=== PATIENT | female | born 1990 | race Asian ===

== ENCOUNTER 2019-03-21 03:50 | Inpatient (IN) | payer OTHER ==
[2019-03-21] MEDS ORDERED: Lactated Ringers 1000 ML Bag* 1,000 ML IV ONE (04:42)
[2019-03-21] MEDS ORDERED: Buffered Lidocaine 1% SYRIN* 1 ML/SYRINGE INTRADERM ONE (04:42)
[2019-03-21] MEDS ORDERED: ceFAZolin VIAL(*) 2 GM in NS 0.9% 100 ML* 100 ML IVPB ONE (04:53)
--- NOTE | 2019-03-21 04:53 | HP ---
General Information - Reason for Visit srom at 0100 - General Information Maternal Age: 28 Grav: 1 Para: 0 SAB: 0 IEA: 0 Estimated Due Date: 03/28/19 Determined By: LMP Maternal Blood Type and Rh: O Positive - Results this Serology/RPR Result: Non-Reactive Rubella Result: Immune HBsAg Result: Negative HIV Result: Negative GBS Culture Result: Positive Past Medical History Delivery History: See Records Pertinent Past Medical History: See Records - hypothyroid Pertinent Past Surgical History: None Pertinent Family History: Non-Contributory - Antepartal Records Antepartal Records: Reviewed, Complicated by: - gdm in good control. Review of Systems Constitutional: Comfortable CV Complaint: No Respiratory: Shortness of Breath: No Genitourinary: Leaking Fluid, No Bleeding Musculoskeletal: No Complaint Neurological: No Headache Movement: Normal Exam Allergies/Adverse Reactions: Allergies Penicillins Allergy (Verified 03/21/19 04:03) Unknown Reaction Details Lab Values - Entire Visit: Laboratory Tests 03/21/19 04:04 Vag Amniotic Fld Detect Positive - Measurements Height: 5 ft 1 in Weight: 150 lb Weight in lbs: 150.412555 Body Mass Index (BMI): 28.3 Pre- Weight: 130 lb Weight Gained This : 20 lbs and 0 ozs - Exam Breast: Breast Exam Deferred Extremities: No Edema Heart: Normal Rhythm/Heart Sounds HEENT: No Significant Findings Lungs: Clear Bilaterally Rectal: Rectal Exam Deferred Reflexes: DTR 2+ Targeted Exam Findings See L&D Outpatient Visit Provider Note for Findings: N/A Estimated Weight: 6.5 lbs Presenting Part: Vertex Membrane Status: SROM Amniotic Fluid Evaluation: Positive ROM Plus EFM Findings - External Monitor Findings External Monitor Findings: Accelerations Present, Variability Moderate Contractions: None Assessment/Plan - Obstetrical Risk Factors Obstetrical Risk Factors: GBS Positive, Gestational Diabetes - Plan Plan: Antibiotic Prophylaxis - ancef 1gm q 8, Admit - Anticipate Vaginal Delivery - will induce this am if no labor/ discussed cnm today with back up by locum/ pt accepting
[2019-03-21] MEDS ORDERED: Lactated Ringers 1000 ML Bag* 1,000 ML IV SCH ×3 (05:00→22:00)
[2019-03-21 05:02] LABS: ABS Eosinophils 0.1 10^3/ul (0-0.6); ABS Lymphocytes 2.1 10^3/ul (1.0-4.8); ABS Monocytes 0.7 10^3/ul (0-0.8); ABS Neutrophils 11.7 10^3/ul (1.5-7.7); Eosinophil % 0.8 %; Hematocrit 43 % (35-47); Hemoglobin 14.6 g/dL (12.0-16.0); Mean Corpuscular HGB Conc 34 g/dL (31-36); Mean Corpuscular Hemoglobin 31 pg (27-31); Mean Corpuscular Volume 92 fL (80-97); Mean Platelet Volume 9.8 fL (7.4-10.4); Platelet Count 149 10^3/uL (150-450); Red Blood Count 4.66 10^6 /uL (3.70-4.87); Red Cell Distribution Width 14 % (10-15); White Blood Count 14.7 10^3/uL (3.5-10.8)
[2019-03-21 05:21] LABS: Urine Benzodiazepine Screen None Detected (None Detect); Urine Opiates Screen None Detected (None Detect)
--- NOTE | 2019-03-21 08:41 | PN ---
Progress Note - Progress Note Date of Service: 03/21/19 Note: S: Report from Kaelyn Spivey. pt, but locum on today and MD desires to transfer care to this [facility]. At time of report, FHT with minimal variability with 2 decels. Pt is resting in bed. Not in pain. IV started with fluids infusing. and mother at bedside. O: BP 94/63, temp 99, HR 77, VE: 1/80/0 FHT: variability improving, FHR 140 VE deferred, SROM clear fluid Occasional contraction A: , IUP@39 weeks GBS positive, abx started, PCN allergy course complicated by: hypothyroidism and GDM Category II tracing Irregular contractions Ruptured P: Use tint layer services PRN Closely monitor FHT, start labor induction with Pitocin with reactive tracing Pain meds PRN Anticipate progression to active labor
--- NOTE | 2019-03-21 09:32 | PN ---
Progress Note - Progress Note Date of Service: 03/21/19 Note: Patient is 28 year old with MATEO of 03/28/2019 at 39 weeks who presented with ruptured membranes with clear amniotic fluid at 0100 today and was admitted to labor and delivery this morning. She has GDMA1 with compliant diet control. She had successful external version from breech presentation on . Patient feels mild contractions. She denies vaginal bleeding. Intake & Output 03/20/19 03/21/19 03/21/19 18:59 06:59 18:59 Weight 68.039 kg T 99.3, BP 107/74, P77 her last cervical exam was /0 FHR baseline 145 with moderate variability with occasional accelerations.category 1 prior to fluid bolus, heart rate had variable decelerations and was category 2. Laboratory Results - last 24 hr 03/21/19 03/21/19 03/21/19 04:04 04:48 04:50 WBC RBC Hgb Hct MCV MCH MCHC RDW Plt Count MPV Neut % (Auto) Lymph % (Auto) Swain % (Auto) Eos % (Auto) Baso % (Auto) Absolute Neuts (auto) Absolute Lymphs (auto) Absolute Monos (auto) Absolute Eos (auto) Absolute Basos (auto) Absolute Nucleated RBC Nucleated RBC % POC Glucose (mg/dL) 81 Vag Amniotic Fld Detect Positive Urine Opiates Screen Ur Barbiturates Screen Ur Phencyclidine Scrn Ur Amphetamines Screen U Benzodiazepines Scrn Urine Cocaine Screen U Cannabinoids Screen Blood Type O Positive Antibody Screen Negative 03/21/19 03/21/19 04:50 04:50 WBC 14.7 H RBC 4.66 Hgb 14.6 Hct 43 MCV 92 MCH 31 MCHC 34 RDW 14 Plt Count 149 L MPV 9.8 Neut % (Auto) 79.9 Lymph % (Auto) 14.0 Swain % (Auto) 5.1 Eos % (Auto) 0.8 Baso % (Auto) 0.2 Absolute Neuts (auto) 11.7 H Absolute Lymphs (auto) 2.1 Absolute Monos (auto) 0.7 Absolute Eos (auto) 0.1 Absolute Basos (auto) 0.0 Absolute Nucleated RBC 0.0 Nucleated RBC % 0.0 POC Glucose (mg/dL) Vag Amniotic Fld Detect Urine Opiates Screen None detected Ur Barbiturates Screen None detected Ur Phencyclidine Scrn None detected Ur Amphetamines Screen None detected U Benzodiazepines Scrn None detected Urine Cocaine Screen None detected U Cannabinoids Screen None detected Blood Type Antibody Screen Assessment: Patient with SROM at term in latent phase of labor Plan: Observe progress in labor and tolerance of labor, possible pitocin augmentation. Keira Mcdonald MD
--- NOTE | 2019-03-21 12:23 | PN ---
Progress Note - Progress Note Date of Service: 03/21/19 Note: S: Pt resting in bed. Reports some lower back pain since yesterday d/t strain. Feeling mild pain with contractions. O: BP 94/63, temp 99.1, HR 77 FHT: periods of minimal variability and moderate variability. FHR 140. No decels. VE: 50/-1 Occasional contraction A: , IUP@39 weeks GBS positive, abx started, PCN allergy course complicated by: hypothyroidism and GDM Category II Irregular contractions Ruptured P: Used shirt finisher to discuss FHT, PARQ discussion about Pitocin, and plan for operative if baby intolerant to labor/Pitocin. Questions answered. Pt and family in agreement with plan. Closely monitor FHT, start labor induction with Pitocin with reactive tracing Tylenol now for back pain Anticipate progression to active labor
[2019-03-21] MEDS ORDERED: Oxytocin in LR* 20 UNITS/1,000 ML BAG IVPB ONE (12:57)
[2019-03-21] MEDS: ceFAZolin VIAL(*) 1 GM in NS 0.9% 50 ML* 50 ML IVPB SCH ×2 (13:50→20:40)
[2019-03-21] MEDS ORDERED: Oxytocin in LR* 20 UNITS/1,000 ML BAG IVPB SCH (14:00)
--- NOTE | 2019-03-21 14:01 | PN ---
Progress Note - Progress Note Date of Service: 03/21/19 Note: S: Pt out of bed, ambulating, planning to use yoga ball. Feeling more intense contractions. O: BP 113/74, HR 67, temp 99.1 FHT: periods of minimal variability; now moderate variability, FHR 150, +accels , no decels VE: deferred Occasional contraction A: , IUP@39 weeks GBS positive, abx started, PCN allergy course complicated by: hypothyroidism and GDM Category I tracing Irregular contractions Ruptured, clear fluid P: Start low-dose Pitocin MD Harry updated and in house Anticipate progression to active labor
[2019-03-21] MEDS ORDERED: Acetaminophen TAB* 325 MG PO PRN ×2 (14:05→21:52)
[2019-03-21] MEDS ORDERED: Ondansetron INJ* 2 MG/ML VIAL IV PRN ×3 (14:59→21:15)
--- NOTE | 2019-03-21 15:16 | PN ---
Progress Note - Progress Note Date of Service: 03/21/19 - Progress Note Note: S: Patient is on Pitocin augmentation of labor at 2milliunits/min. She is feeling contractions more intensely. She had some nausea and vomiting and received a dose of Zofran. O: BP106/67, T 99.3, P75 FHR baseline 145-150 with moderate variability and accelerations, occasional variable decelerations contractions q3-4 minutes A: Patient is 28 year old at 39 weeks with SROM at 0100 on pitocin augmentation of labor. GBS + on Ancef due to PCN allergy history: GDMA1, thyroid disorder monitoring reassuring P: Follow progress in labor, Continue Pitocin augmentation of labor as tolerated. Keira Mcdnoald MD
--- NOTE | 2019-03-21 17:02 | PN ---
Progress Note - Progress Note Date of Service: 03/21/19 - Progress Note Note: S: Patient had episodes of bloody fluid on pad. Pitocin was discontinued. O: T100.1, P 78, BP 96/59, Oxygen saturation 97% contractions every 4 to 5 minutes FHR 145 with moderate variability, +accelerations, occasional mild variable deceleration Last vaginal exam was 2/80% Assessment: Category 2 tracing improving following discontinuation of pitocin., labor contractions are continuing, blood amniotic fluid is slowed. Plan: Observe for progress in labor. Type and Cross match.
--- NOTE | 2019-03-21 19:57 | PN ---
Progress Note - Progress Note Date of Service: 03/21/19 Note: S: Pt resting in bed. Reports feeling occasional contraction. O: BP 11/74, HR 67, temp 99. FHT: periods of minimal variability; now moderate variability, FHR 150, +accels , no decels VE: deferred Occasional contraction A: , IUP@39 weeks GBS positive, abx started, PCN allergy course complicated by: hypothyroidism and GDM Category I tracing Irregular contractions Ruptured, clear fluid P: Start low-dose Pitocin MD Harry updated and in house Anticipate progression to active labor S: Pt out of bed, ambulating, planning to use yoga ball. Feeling more intense contractions. O: BP 113/74, HR 67, temp 99. FHT: periods of minimal variability; now moderate variability, FHR 150, +accels , no decels VE: deferred Occasional contraction A: , IUP@39 weeks GBS positive, abx started, PCN allergy course complicated by: hypothyroidism and GDM Category I tracing Irregular contractions Ruptured, clear fluid P: Start low-dose Pitocin MD Harry updated and in house Anticipate progression to active labor S: Pt resting in bed. O: BP 115/72, HR 91, temp 99.3 FHT: FHR 148, minimal variability, variable decel, no accels Contractions q4-10 mins VE: 2cm/80/-1, bloody fluid, moderate amount (150 mL) of deep red blood with VE A: , IUP@39 weeks GBS positive, abx started, PCN allergy course complicated by: hypothyroidism and GDM Category II tracing intolerance to labor P: MD Harry updated. Plan for operative . Harry to bedside to consent patient. Marie to first officer and flight instructor. NICU and anesthesia aware.
[2019-03-21] MEDS ORDERED: Sodium Citrate/Citric Acid* 15 ML UDC ONE (20:04)
[2019-03-21] MEDS ORDERED: OXYTOCIN* 10 UNITS/ML 1 ML VIAL ONE (20:07)
[2019-03-21] MEDS ORDERED: Morphine PF AMP (0.5MG/ML)* 5 MG/10 ML AMP ONE (20:07)
[2019-03-21] MEDS ORDERED: Phenylephrine 40 MCG/ML SYRINGE ONE (20:07)
[2019-03-21] MEDS ORDERED: fentaNYL* 50 MCG/ML 2 ML VIAL (100 MCG VIAL) IV PRN (20:18)
[2019-03-21] MEDS ORDERED: Naloxone* 0.4 MG/ML 1 ML VIAL IV PRN ×2 (20:18→21:15)
--- NOTE | 2019-03-21 20:31 | PN ---
Progress Note - Progress Note Date of Service: 03/21/19 - Progress note Note: Patient is 28 year old at 39 weeks with ruptured membranes since 0100. Patient has been jojo every 4 to 5 minutes off pitocin and has not made change in cervix exam since about 330pm. Patient was recommended to have primary section for intolerance to labor with vaginal bleeding episodes and category 2 tracing remote from delivery. Risks/benefits and alternatives were reviewed with patient and she consented to the surgery. O T 99.3, HR91, BP 11/64 FHR 150 moderate variability, +acceleration, +deceleration VE unchange 2cm/80% Assessment: intolerance to augmentation of labor with episodes of vaginal bleeding and category 2 heart rate tracing. Plan: Delivery by primary low transverse section. Anesthesia, NICU, operating room, nursing teams notified. Keira Mcdonald MD
[2019-03-21] MEDS ORDERED: oxyCODONE/Acetamin 5/325 MG* TAB PO PRN ×2 (21:15)
[2019-03-21] MEDS ORDERED: Nalbuphine* 10 MG/ML 1 ML VIAL IV PRN (21:15)
[2019-03-21] MEDS ORDERED: diPHENhydraMINE IV* 50 MG/ML 1 ml VIAL (BENADRYL) IV PRN (21:15)
[2019-03-21] MEDS ORDERED: Glycerin ADULT SUPP PR PRN (21:52)
[2019-03-21] MEDS ORDERED: Witch Hazel PAD* JAR TOPICAL PRN (21:52)
[2019-03-21] MEDS ORDERED: Dibucaine 1% 28.35 GM TUBE PR PRN (21:52)
[2019-03-21] MEDS: Ketorolac INJ* 30 MG/ML 1 ML VIAL IV PRN (23:00)
[2019-03-22] MEDS: Ketorolac INJ* 30 MG/ML 1 ML VIAL IV PRN ×3 (07:58→21:02)
[2019-03-22] MEDS: Simethicone TAB* 80 MG TAB.CHEW PO SCH ×4 (07:59→21:02)
[2019-03-22] MEDS: Docusate CAP* 100 MG PO SCH ×3 (07:59→21:02)
[2019-03-22] MEDS ORDERED: Ferrous Gluconate TAB* 324 MG TAB PO SCH (09:00)
[2019-03-22 09:28] LABS: ABS Eosinophils 0.1 10^3/ul (0-0.6); ABS Lymphocytes 1.5 10^3/ul (1.0-4.8); Eosinophil % 0.7 %; Hematocrit 37 % (35-47); Hemoglobin 12.6 g/dL (12.0-16.0); Mean Corpuscular HGB Conc 34 g/dL (31-36); Mean Corpuscular Hemoglobin 32 pg (27-31); Mean Corpuscular Volume 93 fL (80-97); Mean Platelet Volume 9.8 fL (7.4-10.4); Platelet Count 126 10^3/uL (150-450); Red Blood Count 3.95 10^6 /uL (3.70-4.87); Red Cell Distribution Width 14 % (10-15); White Blood Count 16.7 10^3/uL (3.5-10.8)
--- NOTE | 2019-03-22 09:36 | PN ---
Progress Note - Progress Note Date of Service: 03/22/19 - POD#1 Note: Patient is 28 year old post op day 1 s/p Primary LTCS with two layer uterine closure. Patient is without complaints. Her pain is controlled with toradol. She is tolerating regular diet without nausea or vomiting. She has passed flatus. Her vaginal bleeding has slowed. She denies fever or chills. She denies leg pains. Brennan is draining clear urine. O: Vital Signs: Temp Pulse Resp BP Pulse Ox 97.9 F 80 15 94/54 03/22/19 05:03 03/22/19 05:03 03/22/19 05:03 03/22/19 05:03 chest: clear to auscultation cardiac: regular rate and rhythm abdomen: soft, BS present, nontender, fundus firm, dressing dry and intact lochia: moderate extremities, SCD in place, legs nontender, no edema Vital Signs Temp 97.9 F 03/22/19 05:03 Pulse 80 03/22/19 05:03 Resp 15 03/22/19 05:03 BP 94/54 03/22/19 05:03 Pulse Ox Intake & Output 03/21/19 03/22/19 03/22/19 18:59 06:59 18:59 Output Total 1050 Balance -1050 Output: Brennan 1050 Laboratory Results - last 24 hr 03/21/19 03/22/19 04:50 09:19 WBC 16.7 H RBC 3.95 Hgb 12.6 Hct 37 MCV 93 MCH 32 H MCHC 34 RDW 14 Plt Count 126 L MPV 9.8 Neut % (Auto) 84.1 Lymph % (Auto) 9.0 Bollinger % (Auto) 6.0 Eos % (Auto) 0.7 Baso % (Auto) 0.2 Absolute Neuts (auto) 14.0 H Absolute Lymphs (auto) 1.5 Absolute Monos (auto) 1.0 H Absolute Eos (auto) 0.1 Absolute Basos (auto) 0.0 Absolute Nucleated RBC 0.0 Nucleated RBC % 0.0 Blood Type O Positive Antibody Screen Negative Crossmatch See Detail Assessment: POD#1 s/p Primary LTCS doing well. Pain well controlled. Bowel function returning. Maternal blood type O positive, rubella immune Plan: continue routine postop, discontinue brennan catheter today. Regular diet as tolerated. Keira Mcdonald MD
[2019-03-22] MEDS ORDERED: Ammonia Inhalant* 1 EA AMP ONE (09:50)
[2019-03-22] MEDS ORDERED: Zolpidem TAB* 5 MG PO PRN (13:16)
[2019-03-22] MEDS ORDERED: oxyCODONE/Acetamin 5/325 MG* TAB PO PRN ×2 (13:16)
[2019-03-22] MEDS ORDERED: Ondansetron INJ* 2 MG/ML VIAL IV SCH (13:16)
[2019-03-23] MEDS: Ibuprofen TAB* 600 MG PO PRN ×4 (03:33→22:06)
[2019-03-23] MEDS: Simethicone TAB* 80 MG TAB.CHEW PO SCH ×4 (09:12→21:12)
[2019-03-23] MEDS: Docusate CAP* 100 MG PO SCH ×3 (09:12→21:12)
--- NOTE | 2019-03-23 09:12 | PN ---
Progress Note - Progress Note Date of Service: 03/23/19 - POD#2 s/p PLTCS Note: Patient is 28 year old POD#2 s/p Primary LTCS. She is feeling better. She is passing gas and tolerating regular diet. Her pain is about a 3 on 10 pain scale. She is voiding urine without difficulty. She is . She states the baby lost some weight. O: Vital Signs Temp 98.5 F 03/23/19 07:50 Pulse 75 03/23/19 07:50 Resp 16 03/23/19 07:50 BP 91/65 03/23/19 07:50 Pulse Ox Intake & Output 03/22/19 03/23/19 03/23/19 18:59 06:59 18:59 Output Total 3175 Balance -3175 Output: Urine 1400 Farfan 1775 abdomen: soft, mild distension, BS+, dressing dry and intact extremities nontender lochia scant Assessment: POD#2 s/p primary LTCS Plan: continue supportive post-op care. Keira Mcdonald MD
[2019-03-23 10:53] LABS: Varicella IgG Antibody Index <0.2; Varicella-Zoster IgG Antibody Negative
[2019-03-24] MEDS: Ibuprofen TAB* 600 MG PO PRN ×2 (04:09→10:15)
[2019-03-24] MEDS: Docusate CAP* 100 MG PO SCH (08:59)
[2019-03-24] MEDS: Simethicone TAB* 80 MG TAB.CHEW PO SCH (08:59)
[2019-03-24 09:11] VITALS: BP 94/64
--- NOTE | 2019-03-24 10:02 | PTEDU ---
Patient Name: MARICRUZ LYNN MARICRUZ LYNN selected video: Never Ever Shake a Baby to view on 03/24/2019 at 10:01:49 AM from [id number]
--- NOTE | 2019-03-24 10:04 | PTEDU ---
Patient Name: MARICRUZ LYNN MARICRUZ LYNN selected video: Never Ever Shake a Baby to view on 03[facility]24/2019 [facility] 10:03:10 [id number]
--- NOTE | 2019-03-24 10:56 | OP ---
OPERATIVE REPORT: DATE OF OPERATION: 03/21/19 DATE OF : 88 SURGEON: Farooq Salazar MD. DATAWAREHOUSE DEVELOPER: Keira Mcdonald MD. ANESTHESIA: Spinal. PRE-OP DIAGNOSES: at 39 weeks, premature rupture of membranes, vaginal bleeding, and category II tracing remote from delivery. POST-OP DIAGNOSES: at 39 weeks, premature rupture of membranes, vaginal bleeding, and category II tracing remote from delivery. OPERATIVE PROCEDURE: Primary low transverse section. Delivery of head with vacuum assistance. ESTIMATED BLOOD LOSS: 600 cc. FLUIDS: She received 1600 cc of crystalloid fluid. URINE OUTPUT: 400 cc of clear urine. FINDINGS: Delivery of a viable female over bloody fluid with a weight of 6 pounds 10 ounces with Apgars of 8 and 8. The placenta was sent to pathology. It appeared to be consistent with abruption. The uterus, adnexa, bowel, and bladder were all within normal limits and there were no complications. DESCRIPTION OF PROCEDURE: The patient was taken to the operating room, where she was identified. She was placed on the operating table, where a spinal anesthetic was obtained without difficulty. She was then placed in the supine position with a leftward tilt, prepped and draped in a normal sterile fashion. A Pfannenstiel skin incision was then made with a knife and carried through to the underlying layer fascia. The fascia was nicked in the midline and extended laterally with curved Bolanos scissors. The fascia was then grasped superiorly and inferiorly with Pili clamps and dissected off sharply from the rectus muscle. The rectus muscle was in the midline bluntly. The peritoneum was identified, grasped with pickups, and entered sharply with Metzenbaum scissors and extended superiorly and inferiorly sharply. A bladder blade was inserted into the patient's abdomen and bladder flap was created using Metzenbaum scissors, over which the bladder blade was then re-inserted. A low transverse uterine incision was made with a knife, extended laterally with bandage scissors. The infant's head was then grasped. It was difficult to deliver the head, so vacuum was applied and the head was then delivered without difficulty with vacuum extraction. The rest of the infant's body was then delivered. Nuchal cord x1 was reduced. The cord was clamped and cut and the was handed off to awaiting social work nurse. Cord bloods were obtained. The placenta was removed manually. The uterus was then exteriorized and cleared of all clot and debris using moist laparotomy sponges. The uterine incision was then closed using 0-Polysorb suture in a running locked fashion with a second imbricating layer of 0-Polysorb suture with good hemostasis noted. The uterus was then returned to the patient's abdomen. The gutters were then cleared of all clot and debris using moist laparotomy sponges. All the sponges were removed from the patient's abdomen. The peritoneum was then closed using 3-0 Polysorb suture in a running fashion. The fascia was closed using 0-Polysorb suture in a running fashion and the skin was closed with 4-0 Monocryl subcuticular stitch. The patient tolerated the procedure well. Sponge , lap and needle counts were correct x2. She was then transferred to the recovery room area in stable condition. [id number]/CPS #: [id number] MTDTeresa
== END 2019-03-24 14:30 | disposition home or self-care (01) | DRG 788 ==
LOC: MCHOBOUT 03:50 → MCHOB 05:07
PROVIDERS: ADMIT Advanced Practice Midwife; ATTEND Obstetrics & Gynecology
PROC: 30233N1 Transfusion of Nonautologous Red Blood Cells into Peripheral Vein, Percutaneous Approach (ICD-10-PCS; 2019-03-21)
PROC: 10D00Z1 Extraction of Products of Conception, Low, Open Approach (ICD-10-PCS; principal; 2019-03-21 20:28)
DX: O76 Abnormality in fetal heart rate and rhythm complicating labor and delivery (principal); O24.420 Gestational diabetes mellitus in childbirth, diet controlled; O99.824 Streptococcus B carrier state complicating childbirth; O42.02 Full-term premature rupture of membranes, onset of labor within 24 hours of rupture; O99.284 Endocrine, nutritional and metabolic diseases complicating childbirth; E03.9 Hypothyroidism, unspecified; O67.8 Other intrapartum hemorrhage; O69.81X0 Labor and delivery complicated by cord around neck, without compression, not applicable or unspecified; Z3A.39 39 weeks gestation of pregnancy; Z37.0 Single live birth
CPT/HCPCS: 36415; 80307; 84112; 85025; 86787; 86850; 86900; 86901; 86922; 88307; A9270-GY; J0690; J1885; J2405; J2590